=== PATIENT | male | born 1990 | race Two or more races ===

== ENCOUNTER 2017-02-18 01:18 | Emergency (ER) | payer BC, MEDICAID ==
[~2017-02-18] VITALS: Ht 170.2 cm; Wt 80.7 kg
--- NOTE | 2017-02-18 02:07 | Emergency Room Report ---
History of Present Illness General Chief Complaint: Lower Back Pain or Injury Source: Patient, PMD Present Illness HPI Is a 26-year-old male with no past medical history. He presents with chief complaint of lower back pain. It woke him up. Pain is throbbing and spastic in nature. He was shaky because of it. He felt: Chills. No nausea no vomiting. No hematuria. No urinary complaint. Pain is 8/10. Never had this problem before. No trauma. Allergies: Coded Allergies: No Known Allergies (Unverified , 09/06/14) Patient History Past Medical History: see triage record, old chart reviewed Past Surgical History: none Pertinent Family History: none Social History: Denies: smoking Immunizations: other Reviewed Nursing Documentation: PMH: Agreed, PSxH: Agreed Nursing Documentation-PM Past Medical History: No Stated History Review of Systems Constitutional: Reports: chills Eye: Denies: blurred vision, eye pain ENT: Denies: ear pain, nose congestion, throat swelling Respiratory: Denies: cough, shortness of breath Cardiovascular: Denies: chest pain, palpitations Gastrointestinal: Denies: abdominal pain, diarrhea, nausea, vomiting Musculoskeletal: Reports: back pain, Denies: joint pain Skin: Denies: rash Neurological: Denies: headache, numbness Endocrine: Denies: increased thirst, increased urine Hematologic/Lymphatic: Denies: easy bruising All Other Systems: negative except mentioned in HPI Physical Exam Vital Signs Date Time Temp Pulse Resp B/P Pulse Ox O2 Delivery O2 Flow Rate FiO2 02/18/17 01:57 98.2 85 18 103/69 97 Room Air vitals normal Sp02 EP Interpretation: reviewed, normal General Appearance: well appearing, no apparent distress, alert Head: normocephalic, atraumatic Eyes: bilateral eye EOMI, bilateral eye PERRL ENT: hearing grossly normal, normal pharynx Neck: full range of motion, supple, no meningismus Respiratory: chest non-tender, lungs clear, normal breath sounds Cardiovascular #1: regular rate, rhythm, no murmur Gastrointestinal: normal bowel sounds, non tender, no mass, no organomegaly, no bruit, non-distended Musculoskeletal: back normal - TTP over left lower lumbar area., gait/station normal, normal range of motion Neurologic: alert, oriented x3 Psychiatric: mood/affect normal Skin: warm/dry Medical Decision Making Diagnostic Impression: Primary Impression: Low back pain Qualified Codes: M54.5 - Low back pain ER Course Patient presents with lower back pain. Initially urine show hematuria but microscopically unremarkable. I did a CT scan which showed absent left kidney. When I told father and patient is, he remembered that he had a previous CAT scan couple months ago that showed that. Told patient to avoid NSAIDs history well-hydrated. He fell better now. We'll discharge home. CT/MRI/US Diagnostic Results CT/MRI/US Diagnostic Results : Imaging Test Ordered: CT abdomen And pelvis Impression Read by radiologist. Absent left kidney. Otherwise negative. Last Vital Signs Date Time Temp Pulse Resp B/P Pulse Ox O2 Delivery O2 Flow Rate FiO2 02/18/17 01:57 98.2 85 18 103/69 97 Room Air Status: improved Disposition: HOME, SELF-CARE Condition: Stable Scripts Hydrocodone/Acetaminophen 5-325* (HYDROCODONE/ACETAMINOPHEN 5-325*) 1 Each Tablet 1 TAB ORAL Q6H Y for For Pain, #20 TAB 0 Refills Prov: LEONARDO LUGO M.D. 02/18/17 Patient Instructions: Back Pain, Adult Additional Instructions: Follow up with your doctor in 7 days. return if worse. Stay well hydrated. LEONARDO LUGO M.D. Feb 18, 2017 02:07
[2017-02-18] MEDS ORDERED: Ketorolac 60mg Inj IM ONE (02:15)
[2017-02-18 02:19] LABS: APPEARANCE,URINE CLEAR; KETONES,URINE NEGATIVE (NEGATIVE); LEUKOCYTE ESTERASE ,URINE NEGATIVE (NEGATIVE); NITRITE,URINE NEGATIVE (NEGATIVE); PH,URINE 5 (4.5-8.0); PROTEIN,URINE 2+ (NEGATIVE); UROBILINOGEN,URINE NORMAL MG/DL (0.0-1.0)
[2017-02-18 02:37] LABS: RBC,URINE 0-2 /HPF (0 - 0); WBC,URINE 0-2 /HPF (0 - 0)
[2017-02-18] MEDS ORDERED: HYDROCODON-ACE1 EA15 ORAL (03:41)
[2017-02-18 03:50] VITALS: BP 103/69
[2017-02-18 03:51] VITALS: BP 103/69
--- NOTE | 2017-02-18 09:46 | Diagnostic Imaging Report ---
Indications: Right-sided abdominal pain Technique: Continuous helical CT imaging of the abdomen and pelvis was performed with automatic exposure control on a Siemens sensation [address] scanner. Axial, coronal, sagittal images reconstructed at 3 mm slice thickness. No oral or IV contrast was administered per requesting physician's order, no contraindications listed. CTDI volume(s): 14 mGy Total DLP: 736 mGy-cm Findings: Comparison: None Lack of IV and oral contrast limits evaluation. Left kidney is absent. Right kidney hypertrophy. No intraparenchymal or intraluminal stone, collecting system or ureteral dilation, perinephric or periureteral stranding. Urinary bladder minimally distended. Mild mural thickening not excludable. Gastrointestinal tract nondistended. Appendix unremarkable. No obvious mural thickening, adjacent stranding, extraluminal gas or fluid collections, though collapse of sigmoid colon limits evaluation. Remainder visualized abdominopelvic anatomy demonstrates no other obvious acute abnormality. Lung bases and adjacent pleural surfaces clear. Disc space narrowing with marginal osteophyte formation lower lumbar spine. Impression: No evidence of acute abdominopelvic disease, with limitation as described. Subtle but potentially significant abnormalities may be missed. Repeat CT scan with full oral and IV contrast preparation recommended for more complete evaluation, as clinically indicated Solitary right kidney Mild degenerative spondylosis This correlates with [facility] preliminary report.
== END 2017-02-18 03:55 | disposition home or self-care (01) ==
LOC: EMR 02:05
DX: M54.5 Low back pain (principal); R10.9 Unspecified abdominal pain
CPT/HCPCS: 74176; 81003; 96372; 99284

== ENCOUNTER 2017-02-24 07:38 | Emergency (ER) | payer MEDICAID ==
[~2017-02-24] VITALS: Ht 170.2 cm; Wt 80.7 kg
[~2017-02-24 07:38] MED LIST: HYDROCODON-ACE1 EA15 ORAL
[2017-02-24 07:55] VITALS: BP 139/81
--- NOTE | 2017-02-24 08:23 | Emergency Room Report ---
History of Present Illness General Chief Complaint: Pain Source: Patient Present Illness HPI Patient presents with complaints of right-sided low back pain He reports worsening symptom with movement Patient reports on Friday he had diarrhea He has also experienced some chills over the past week and Denies any chest pain or shortness of breath Denies any vomiting however he does feel nauseated when he eats Denies any recent travel Denies any dysuria frequency denies any testicular pain Upon review of patient's medical records, there was a CAT scan done recently which showed a solitary right-sided kidney after bringing this up to the patient he does confirm that he was told that recently Allergies: Coded Allergies: No Known Allergies (Unverified , 09/06/14) Patient History Past Medical History: see triage record Pertinent Family History: none Reviewed Nursing Documentation: PMH: Agreed, PSxH: Agreed Nursing Documentation-PMH Hx Gastrointestinal Problems: Yes - IBS Review of Systems All Other Systems: negative except mentioned in HPI Physical Exam Vital Signs Date Time Temp Pulse Resp B/P (MAP) Pulse Ox O2 Delivery O2 Flow Rate FiO2 02/24/17 07:40 98.6 95 16 158/79 97 Room Air Sp02 EP Interpretation: reviewed, normal General Appearance: well appearing, no apparent distress Head: normocephalic, atraumatic Eyes: bilateral eye PERRL, bilateral eye EOMI ENT: hearing grossly normal, normal pharynx, TMs + canals normal, uvula midline Neck: full range of motion, supple, no meningismus, no bony tend Respiratory: lungs clear, normal breath sounds, no rhonchi, no respiratory distress, no retraction, no accessory muscle use Cardiovascular #1: normal peripheral pulses, regular rate, rhythm, no edema, no gallop, no JVD, no murmur Gastrointestinal: normal bowel sounds, non tender, soft, no mass, no organomegaly, non-distended, no guarding, no hernia, no pulsatile mass, no rebound Genitourinary: no CVA tenderness Musculoskeletal: other - Patient has some discomfort on palpation of the right posterior superior iliac crest region, I cannot reproduce any obvious CVA tenderness Neurologic: oriented x3, responsive, 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, motor strength/ tone normal, sensory intact Psychiatric: mood/affect normal Skin: normal color, no rash, warm/dry, palpation normal Lymphatic: normal inspection, no adenopathy Medical Decision Making Diagnostic Impression: Primary Impression: Flank pain, acute ER Course Multiple differentials were considered including but not limited to infectious, muscle skeletal, on review of records patient has CAT scan from last week showing essentially negative findings Given the CAT scan on file patient had an ultrasound obtained for further evaluation Patient also reports of a medical condition such as testicular cyst and arthritis Patient's ultrasound this time is negative Patient does have a solitary kidney however otherwise also showing evidence of proteinuria along with microscopic blood Had an extensive discussion with the patient regarding these abnormal findings Patient requires close nephrology followup is to be initial signs of underlying pathology He understands this and will follow closely Labs Test 02/24/17 07:56 White Blood Count 9.0 K/UL (4.8-10.8) Red Blood Count 5.75 M/UL (4.70-6.10) Hemoglobin 17.1 G/DL (14.2-18.0) Hematocrit 51.7 % (42.0-52.0) Mean Corpuscular Volume 90 FL (80-99) Mean Corpuscular Hemoglobin 29.7 PG (27.0-31.0) Mean Corpuscular Hemoglobin Concent 33.1 G/DL (32.0-36.0) Red Cell Distribution Width 11.1 % (11.6-14.8) Platelet Count 286 K/UL (150-450) Mean Platelet Volume 6.4 FL (6.5-10.1) Neutrophils (%) (Auto) 65.9 % (45.0-75.0) Lymphocytes (%) (Auto) 26.5 % (20.0-45.0) Monocytes (%) (Auto) 5.7 % (1.0-10.0) Eosinophils (%) (Auto) 1.3 % (0.0-3.0) Basophils (%) (Auto) 0.6 % (0.0-2.0) Urine Color Pale yellow Urine Appearance Clear Urine pH 5 (4.5-8.0) Urine Specific [place] 1.010 (1.005-1.035) Urine Protein 3+ (NEGATIVE) Urine Glucose (UA) Negative (NEGATIVE) Urine Ketones Negative (NEGATIVE) Urine Occult Blood 3+ (NEGATIVE) Urine Nitrite Negative (NEGATIVE) Urine Bilirubin Negative (NEGATIVE) Urine Urobilinogen Normal MG/DL (0.0-1.0) Urine Leukocyte Esterase 1+ (NEGATIVE) Urine RBC 2-4 /HPF (0 - 0) Urine WBC 0-2 /HPF (0 - 0) Urine Squamous Epithelial Cells Occasional /LPF Urine Bacteria Few /HPF (NONE) Sodium Level 140 mEQ/L (135-145) Potassium Level 3.3 mEQ/L (3.4-4.9) Chloride Level 98 mEQ/L (98-107) Carbon Dioxide Level 27 mEQ/L (20-30) Anion Gap 15 (5-15) Blood Urea Nitrogen 9 mg/dL (7-23) Creatinine 1.3 mg/dL (0.7-1.2) Estimat Glomerular Filtration Rate > 60 mL/min (>60) Glucose Level 161 mg/dL (74-106) Calcium Level 9.7 mg/dL (8.6-10.2) Total Bilirubin 1.0 mg/dL (0.0-1.2) Aspartate Amino Transf (AST/SGOT) 15 U/L (5-40) Alanine Aminotransferase (ALT/SGPT) 17 U/L (3-41) Alkaline Phosphatase 75 U/L (40-129) Total Protein 8.2 g/dL (6.6-8.7) Albumin 4.8 g/dL (3.5-5.2) Globulin 3.4 g/dL Albumin/Globulin Ratio 1.4 (1.0-2.7) Urine Opiates Screen Negative (NEGATIVE) Urine Barbiturates Screen Negative (NEGATIVE) Phencyclidine (PCP) Screen Negative (NEGATIVE) Urine Amphetamines Screen Negative (NEGATIVE) Urine Benzodiazepines Screen Negative (NEGATIVE) Urine Cocaine Screen Negative (NEGATIVE) Urine Marijuana (THC) Screen Positive (NEGATIVE) CT/MRI/US Diagnostic Results CT/MRI/US Diagnostic Results : Impression Renal ultrasound: Solitary kidney, no acute disease and right-sided Last Vital Signs Date Time Temp Pulse Resp B/P (MAP) Pulse Ox O2 Delivery O2 Flow Rate FiO2 02/24/17 07:55 98.0 91 16 139/81 99 Room Air Status: improved Disposition: HOME, SELF-CARE Condition: Improved Scripts Ondansetron Odt* (ZOFRAN ODT*) 4 Mg Tab.rapdis 4 MG ORAL Q6H Y for Nausea & Vomiting, #10 TAB 0 Refills Prov: YONI BLANCO D.O. 02/24/17 Referrals: NOT CHOSEN IPA/MD,REFERRING (PCP) Additional Instructions: Patient is provided with the discharge instructions notified to follow up with primary doctor in the next 2-3 days otherwise return to the er with any worsening symptoms. Please note that this report is being documented using [employer] technology. This can lead to erroneous entry secondary to incorrect interpretation by the dictating instrument. YONI BLANCO D.O. Feb 24, 2017 08:23
[2017-02-24 08:28] LABS: APPEARANCE,URINE CLEAR; BASOPHILS % (AUTO) 0.6 % (0.0-2.0); EOSINOPHILS % (AUTO) 1.3 % (0.0-3.0); KETONES,URINE NEGATIVE (NEGATIVE); LEUKOCYTE ESTERASE ,URINE 1+ (NEGATIVE); LYMPHOCYTES % (AUTO) 26.5 % (20.0-45.0); MEAN CORPUSCULAR HEMOGLOBIN 29.7 PG (27.0-31.0); MEAN CORPUSCULAR HGB CONC 33.1 G/DL (32.0-36.0); MEAN CORPUSCULAR VOLUME 90 FL (80-99); MEAN PLATELET VOLUME 6.4 FL (6.5-10.1); MONOCYTES % (AUTO) 5.7 % (1.0-10.0); NEUTROPHILS % (AUTO) 65.9 % (45.0-75.0); NITRITE,URINE NEGATIVE (NEGATIVE); PH,URINE 5 (4.5-8.0); PLATELET COUNT 286 K/UL (150-450); PROTEIN,URINE 3+ (NEGATIVE); RED BLOOD COUNT 5.75 M/UL (4.70-6.10); RED CELL DISTRIBUTION WIDTH 11.1 % (11.6-14.8); UROBILINOGEN,URINE NORMAL MG/DL (0.0-1.0)
[2017-02-24 08:37] LABS: BACTERIA,URINE FEW /HPF; SQUAMOUS EPITHELIAL CELL,UR OCCASIONAL /LPF (NONE/OCC); WBC,URINE 0-2 /HPF (0 - 0)
[2017-02-24 08:40] LABS: ALANINE AMINOTRANSFERASE 17 U/L (3-41); ALBUMIN/GLOBULIN RATIO 1.4 (1.0-2.7); ANION GAP 15 (5-15); ASPARTATE AMINO TRANSFERASE 15 U/L (5-40); CALCIUM 9.7 mg/dL (8.6-10.2); CARBON DIOXIDE 27 mEQ/L (20-30); CHLORIDE 98 mEQ/L (98-107); CREATININE 1.3 mg/dL (0.7-1.2); GLOMERULAR FILTRATION RATE > 60 mL/min (>60); HEMOLYSIS 2; POTASSIUM 3.3 mEQ/L (3.4-4.9); SODIUM 140 mEQ/L (135-145); TOTAL PROTEIN 8.2 g/dL (6.6-8.7)
[2017-02-24] MEDS ORDERED: ZOFRAN ODT4 MG ORAL (10:00)
[2017-02-24 10:01] VITALS: BP 135/83
[2017-02-24 10:35] VITALS: BP 118/84
--- NOTE | 2017-02-24 13:01 | Diagnostic Imaging Report ---
Indication:Right flank pain. Back pain. Technique: Grayscale and duplex Doppler imaging of the kidneys performed. Comparison: 02/18/[address] abdomen pelvis Findings: There is no left kidney identified consistent with the given history. There is no hydronephrosis of the right kidney identified. No abscess or structural abnormalities identified within the right kidney. No perinephric fluid identified. The right kidney measurement is 12 cm in length. The IVC and urinary bladder appear unremarkable. The bladder is mostly nondistended on this examination. Impression: Unremarkable right kidney. Note: Sonographic evaluation of pyelonephritis or bacterial nephritis is limited. If there is concern for this, recommend contrast-enhanced CT.
== END 2017-02-24 10:37 | disposition home or self-care (01) ==
LOC: EMR 08:06
DX: R10.9 Unspecified abdominal pain (principal); K58.9 Irritable bowel syndrome, unspecified
CPT/HCPCS: 36415; 76775; 80053; 80300; 81003; 85025; 96365; 99284